=== PATIENT | female | born 1955 ===

== ENCOUNTER 2025-03-23 08:00 | Day surgery (SDC) | payer OTHER ==
[2025-03-17 13:07] VITALS: BP 128/72
[~2025-03-23] VITALS: Ht 152.4 cm; Wt 70.3 kg
[~2025-03-23 08:00] MED LIST: CLONAZEPAM1 MG PO; DULOXETINE HCL60 MG PO; ESTAZOLAM2 MG PO; HORIZANT600 MG PO; LEXAPRO20 MG PO; LIPITOR20 MG PO; SYNTHROID125 MCG PO; TRIPLE MAGNESI400 MG PO; VISTARIL50 MG/ML PO
[2025-03-23] MEDS ORDERED: CEFAZOLIN SODIUM 1,000 MG VIAL ONE (08:46)
[2025-03-23] MEDS ORDERED: LIDOCAINE HCL 1%/EPINEPHRINE 20ML VIAL IJ ONE (09:50)
[2025-03-23] MEDS ORDERED: GENTAMICIN SULFATE 40 MG/ML VIAL ONE (09:50)
[2025-03-23] MEDS ORDERED: CHLORHEXIDINE GLUCONATE 120 ML BOTTLE TOP ONE (09:50)
[2025-03-23] MEDS ORDERED: TRAM1TAB98 PO (12:39)
[2025-03-23] MEDS ORDERED: MACROBID 100 M100 MG PO (12:39)
== END 2025-03-23 15:30 | disposition home or self-care (01) ==
LOC: CIR.AMB 08:00
PROVIDERS: ATTEND Obstetrics & Gynecology Gynecology
DX: N81.11 Cystocele, midline (principal); N81.5 Vaginal enterocele; N81.6 Rectocele